=== PATIENT | male | born 1960 | race Caucasian/White ===

== ENCOUNTER → 2022-05-12 | Outpatient (CLI) | payer MEDICAID ==
[2022-05-12 08:42] LABS: Appearance,Urine Clear (Clear); Bilirubin,Urine Negative (Negative); Blood,Urine Negative (Negative); Color,Urine Yellow; Glucose,Urine (UA) Negative (Negative); Ketones,Urine Negative (Negative); Leukocyte Esterase,Urine Negative (Negative); Nitrite,Urine Negative (Negative); PH, Urine 5.5 (5.0-8.0); Protein,Urine Trace (Negative); Specific Gravity,Urine 1.023 (1.001-1.035); Urobilinogen,Urine <2.0 mg/dL (<2.0)
[2022-05-12 14:45] LABS: HCT 46.3 % (39.6-50.0); HGB 15.3 g/dL (13.0-17.0); Mean Platelet Volume 10.8 fL (9.5-12.2); NRBC Per 100 WBC 0 /100 WBCS (0.0-0.0); Platelet Count 297 X 10*3/uL (140-440); RBC 4.63 X 10*6/uL (4.40-5.60); RDW 13.2 % (11.5-14.5); WBC 7.88 X 10*3/uL (4.50-10.00)
[2022-05-12 15:50] LABS: ALT 28 U/L (10-49); AST 17 U/L (14-35); African American GFR (CKD) 98.5 (60.0-200.0); BUN/Creat Ratio 22.43 Ratio (12.00-20.00); Blood Urea Nitrogen 21.4 mg/dL (9.0-27.0); Calcium 10.4 mg/dL (8.7-10.3); Carbon Dioxide 26.4 mmol/L (20.0-27.5); Chloride 99 mmol/L (96-109); Chol/HDL Ratio 2.89 Ratio; Glucose 160 mg/dL (70-110); LDL Cholesterol,Calculated 104.8 mg/dL (0.0-131.0); Potassium 4.6 mmol/L (3.5-5.5); Sodium 138 mmol/L (135-145); VLDL Calculation 17.52 mg/dL (5.00-40.00)
== END | disposition home or self-care (01) ==
LOC: LABWHC1 07:20
PROVIDERS: ATTEND Family Medicine
DX: I10 Essential (primary) hypertension (principal); E78.5 Hyperlipidemia, unspecified; E11.65 Type 2 diabetes mellitus with hyperglycemia; N40.0 Benign prostatic hyperplasia without lower urinary tract symptoms
CPT/HCPCS: 36415; 80048; 80061; 81003; 83036; 84153; 84443; 84450; 84460; 85027

== ENCOUNTER → 2022-05-26 | Outpatient (CLI) | payer MEDICAID ==
[2022-05-26 11:18] LABS: ALT 22 U/L (10-49); AST 20 U/L (14-35); BUN/Creat Ratio 28.75 Ratio (12.00-20.00); Calcium 9.8 mg/dL (8.7-10.3); Chloride 103 mmol/L (96-109); Chol/HDL Ratio 3.15 Ratio; Glucose 145 mg/dL (70-110); LDL Cholesterol,Calculated 85.6 mg/dL (0.0-131.0); Non-African American GFR(CKD) 95.7 (60.0-200.0); Potassium 4.6 mmol/L (3.5-5.5); Sodium 138 mmol/L (135-145); VLDL Calculation 13.36 mg/dL (5.00-40.00)
== END | disposition home or self-care (01) ==
LOC: LABWHC1 06:59
PROVIDERS: ATTEND Family Medicine
DX: E11.65 Type 2 diabetes mellitus with hyperglycemia (principal); E78.5 Hyperlipidemia, unspecified; R89.9 Unspecified abnormal finding in specimens from other organs, systems and tissues
CPT/HCPCS: 36415; 80048; 80061; 82607; 82747; 83036; 84450; 84460

== ENCOUNTER 2022-10-01 15:02 | Emergency (ER) | payer MEDICAID ==
[2022-10-01 15:16] VITALS: RESP 18; TEMP 98.5
[2022-10-01] MEDS ORDERED: KETOROLAC 15 MG/ML 1 ML VIAL IM STA (15:29)
[2022-10-01] MEDS ORDERED: LIDOCAINE 1% INJ 10MG/ML (30 ML VIAL-PF) SQ ONE (15:30)
--- NOTE | 2022-10-01 15:37 | ED ---
General Adult HPI - General Chief complaint: Wound/Laceration Stated complaint: Right finger laceration Time Seen by Provider: 10/01/22 15:19 Source: patient, RN notes reviewed Mode of arrival: ambulatory Limitations: no limitations - History of Present Illness Initial comments: 62-year-old male presents in the emergency department for finger laceration. Patient was doing woodworking when his left second digit went into the saw blade around 1445. He states he is able to move and feel his finger. He did not take anything at home for pain. Patient states that he has had his tetanus shot within the last 5 years, approximately 2 years ago. - Related Data Home Medications Medication Instructions Recorded Confirmed Atorvastatin [Lipitor] 10 mg PO HS 08/23/22 08/23/22 Losartan Potassium [Cozaar] 50 mg PO QAM 08/23/22 08/25/22 Multivitamins, Thera [Multivitamin 1 tab PO DAILY 08/23/22 08/23/22 (formulary)] metFORMIN HCL [Glucophage] 1,000 mg PO BID 08/23/22 08/23/22 Previous Rx's Medication Instructions Recorded Cephalexin [Keflex] 500 mg PO Q6HR #40 cap 10/01/22 Allergies Allergy/AdvReac Type Severity Reaction Status Date / Time No Known Allergies Allergy Verified 10/01/22 15:16 Review of Systems ROS Statement: Those systems with pertinent positive or pertinent negative responses have been documented in the HPI. ROS Other: All systems not noted in ROS Statement are negative. Past Medical History Past Medical History: Diabetes Mellitus, Hyperlipidemia, Hypertension History of Any Multi-Drug Resistant Organisms: None Reported Additional Past Surgical History / Comment(s): Colonoscopy, brain surgery due to an accident about 35 yrs ago. Past Anesthesia/Blood Transfusion Reactions: No Reported Reaction Past Psychological History: No Psychological Hx Reported Smoking Status: Former smoker Past Alcohol Use History: Occasional Past Drug Use History: Marijuana - Past Family History Mother Family Medical History: No Reported History General Exam Limitations: no limitations General appearance: alert, in no apparent distress Eye exam: Present: normal appearance Extremities exam: Present: full ROM, tenderness (laceration to 2nd digit ), normal capillary refill, other (laceration to right 2nd digit ). Absent: pedal edema, joint swelling, calf tenderness Neurological exam: Present: alert, oriented X3 Skin exam: Present: warm, dry, normal color, other (patient has 2.5 cm laceration to distal right 2nd digit with avulsion ). Absent: rash Course Vital Signs 10/01/22 15:14 Temperature 98.5 F Pulse Rate 85 Respiratory 18 Rate Blood Pressure 157/84 O2 Sat by Pulse 98 Oximetry Procedures - Laceration Laceration #1 Consent Obtained: verbal consent Indication: laceration Site: hand (right 2nd digit) Description: flap, avulsion Depth: simple, single layer Anesthetic Used: lidocaine 1% Anesthesia Technique: nerve block Pre-repair: wound explored, irrigated extensively Type of Sutures: nylon Size of Sutures: 4-0 Number of Sutures: 8 Technique: simple, interrupted Patient Tolerated Procedure: well, no complications Medical Decision Making - Medical Decision Making Was pt. sent in by a medical professional or institution ([facility], WIRELESS NETWORK ENGINEER, urgent care, hospital, or residential...) When possible be specific @ -No Did you speak to anyone other than the patient for history (EMS, parent, family, police, friend...)? What history was obtained from this source @ -No Did you review nursing and triage notes (agree or disagree)? Why? @ -I reviewed and agree with nursing and triage notes Were old charts reviewed (outside hosp., previous admission, EMS record, old EKG, old radiological studies, urgent care reports/EKG's, residential records)? Report findings @ -No old charts were reviewed Differential Diagnosis (chest pain, altered mental status, abdominal pain women, abdominal pain men, vaginal bleeding, weakness, fever, dyspnea, syncope, headache, dizziness, GI bleed, back pain, seizure, CVA, palpatations, mental health, musculoskeletal)? @ -Fracture, laceration, avulsion, this list is not all-inclusive EKG interpreted by me (3pts min.). @ -None X-rays interpreted by me (1pt min.). @ -X-ray right second digit shows a large soft tissue laceration with partial amputation fractured tuft distal phalanx. Punctate bony fragments and soft tissue. CT interpreted by me (1pt min.). @ -None done U/S interpreted by me (1pt. min.). @ -None done What testing was considered but not performed or refused? (CT, X-rays, U/S, labs)? Why? @ -None What meds were considered but not given or refused? Why? @ -None Did you discuss the management of the patient with other professionals (professionals i.e. , PA, WIRELESS NETWORK ENGINEER, lab, RT, psych nurse, bilingual social worker, fisher swordfish, teacher, traffic officer, patient case coordinator)? Give summary @ -No Was smoking cessation discussed for >3mins.? @ -No Was critical care preformed (if so, how long)? @ -No Were there social determinants of health that impacted care today? How? (Homelessness, low income, unemployed, alcoholism, drug addiction, transportation, low edu. Level, literacy, decrease access to med. care, fci, rehab)? @ -No Was there de-escalation of care discussed even if they declined (Discuss DNR or withdrawal of care, Hospice)? DNR status @ -No What co-morbidities impacted this encounter? (DM, HTN, Smoking, COPD, CAD, Cancer, CVA, ARF, Chemo, Hep., AIDS, mental health diagnosis, sleep apnea, morbid obesity)? @ -None Was patient admitted / discharged? Hospital course, mention meds given and route, prescriptions, significant lab abnormalities, going to OR and other pertinent info. @ -Discharged. Patient presented to emergency department with laceration to right second digit distal after working with a table saw. X-ray of right second digit was obtained which shows partial amputation fracture tuft distal phalanx. Antibiotics were administered within 1 hour. 8 simple interrupted sutures were placed. Prescription sent for Keflex at home. Tylenol #3 starter pack given. Patient discharged in stable condition. Undiagnosed new problem with uncertain prognosis? @ [N] Drug Therapy requiring intensive monitoring for toxicity (Heparin, Nitro, Insulin, Cardizem)? @ [N] Were any procedures done? @ -Yes 8 simple interrupted sutures were placed in the right distal second digit] Diagnosis/symptom? @ Laceration to right distal second digit Acute, or Chronic, or Acute on Chronic? @ -Acute] Uncomplicated (without systemic symptoms) or Complicated (systemic symptoms)? @ -Uncomplicated] Side effects of treatment? @ [N] Exacerbation, Progression, or Severe Exacerbation? @ [N] Poses a threat to life or bodily function? How? (Chest pain, [place], [place], pneumonia, PE, COPD, DKA, ARF, appy, cholecystitis, CVA, Diverticulitis, Homicidal, Suicidal, threat to staff... and all critical care pts) @ [N] Diagnosis/symptom? @ -Open Fracture of right distal phalanx of second digit Acute, or Chronic, or Acute on Chronic? @ -acute Uncomplicated (without systemic symptoms) or Complicated (systemic symptoms)? @ -Uncomplicated Side effects of treatment? @ -none Exacerbation, Progression, or Severe Exacerbation @ -no Poses a threat to life or bodily function? @ -no Disposition Clinical Impression: Fracture of distal phalanx of finger, open, Laceration Disposition: HOME SELF-CARE Condition: Stable Instructions (If sedation given, give patient instructions): Care For Your Stitches (ED) Additional Instructions: Please return to the Emergency Department if symptoms worsen or any other concerns. Prescriptions: Cephalexin [Keflex] 500 mg PO Q6HR #40 cap Is patient prescribed a controlled substance at d/c from ED?: No Referrals: Brannon Almanza DO [Primary Care Provider] - 1-2 days eLx Beck MD [STAFF PHYSICIAN] - 1-2 days Time of Disposition: 16:58
[2022-10-01] MEDS ORDERED: ceFAZolin 1,000 MG VIAL (IM USE) IM STA (15:47)
--- NOTE | 2022-10-01 15:55 | XR ---
EXAMINATION TYPE: XR finger RT DATE OF EXAM: 10/01/2022 COMPARISON: NONE HISTORY: Pain TECHNIQUE: Three views are submitted. FINDINGS: Large soft tissue injury or laceration involving the second digit with a partial amputation of the tu ft of the distal phalanx. Remaining osseous structures intact. Punctate bony fragments in the soft ti ssues. Correlate clinically to exclude tiny foreign body. IMPRESSION: 1. Large soft tissue laceration with partial amputation fracture tuft distal phalanx. Punctate bony f ragments in the soft tissues. Correlate clinically to exclude tiny foreign body.
[2022-10-01] MEDS ORDERED: ACET/COD 300 MG/30 MG STARTER PACK 6 TAB BTL PO STA (16:58)
[2022-10-01 17:11] VITALS: BP 145/81; PULSE 86
== END 2022-10-01 17:11 | disposition home or self-care (01) ==
LOC: EC 15:02
DX: S62.630A Displaced fracture of distal phalanx of right index finger, initial encounter for closed fracture (principal); E11.9 Type 2 diabetes mellitus without complications; E78.5 Hyperlipidemia, unspecified; I10 Essential (primary) hypertension; Z87.891 Personal history of nicotine dependence; F12.90 Cannabis use, unspecified, uncomplicated; Z79.84 Long term (current) use of oral hypoglycemic drugs; Z79.899 Other long term (current) drug therapy; W31.2XXA Contact with powered woodworking and forming machines, initial encounter
CPT/HCPCS: 73140; 99283; 96372 ×2; 12001; J0690; J2001; J1885

== ENCOUNTER → 2022-11-24 | Outpatient (CLI) | payer MEDICAID ==
[2022-11-24 11:10] LABS: Basophils # (A) 0.04 X 10*3/uL (0.00-0.10); Basophils % (A) 0.6 %; Eosinophils # (A) 0.13 X 10*3/uL (0.04-0.35); HCT 44.4 % (39.6-50.0); HGB 14.4 g/dL (13.0-17.0); Immature Grans, Automated 0.5 %; Lymphocytes # (A) 1.18 X 10*3/uL (0.90-5.00); Lymphocytes % (A) 18.1 %; MCH 32.1 pg (27.0-32.0); MCHC 32.4 g/dL (32.0-37.0); MCV 99.1 fL (80.0-97.0); Mean Platelet Volume 10.7 fL (9.5-12.2); Monocytes # (A) 0.62 X 10*3/uL (0.20-1.00); Monocytes % (A) 9.5 %; NRBC Per 100 WBC 0 /100 WBCS (0.0-0.0); Neutrophils # (A) 4.53 X 10*3/uL (1.80-7.70); Neutrophils % (A) 69.3 %; Platelet Count 288 X 10*3/uL (140-440); RBC 4.48 X 10*6/uL (4.40-5.60); WBC 6.53 X 10*3/uL (4.50-10.00)
[2022-11-24 11:35] LABS: ALT 23 U/L (10-49); AST 27 U/L (14-35); African American GFR (CKD) 102.1 (60.0-200.0); BUN/Creat Ratio 26.03 Ratio (12.00-20.00); Blood Urea Nitrogen 24.1 mg/dL (9.0-27.0); Calcium 10.5 mg/dL (8.7-10.3); Carbon Dioxide 26.8 mmol/L (20.0-27.5); Chloride 102 mmol/L (96-109); Chol/HDL Ratio 2.42 Ratio; Glucose 125 mg/dL (70-110); LDL Cholesterol,Calculated 74.5 mg/dL (0.0-131.0); Non-African American GFR(CKD) 88.1 (60.0-200.0); Sodium 140 mmol/L (135-145); VLDL Calculation 10.74 mg/dL (5.00-40.00)
== END | disposition home or self-care (01) ==
LOC: LABWHC1 06:57
PROVIDERS: ATTEND Family Medicine
DX: E11.65 Type 2 diabetes mellitus with hyperglycemia (principal); E78.5 Hyperlipidemia, unspecified
CPT/HCPCS: 36415; 80048; 80061; 83036; 84450; 84460; 85025

== ENCOUNTER → 2022-12-29 | Outpatient (CLI) | payer MEDICAID | END | disposition home or self-care (01) | LOC: LABWHC1 06:55 | PROVIDERS: ATTEND Family Medicine | DX: E83.52 Hypercalcemia (principal) | CPT/HCPCS: 36415; 82310 ==

== ENCOUNTER → 2023-06-01 | Outpatient (CLI) | payer MEDICAID | END | disposition home or self-care (01) | LOC: LABWHC1 07:14 | PROVIDERS: ATTEND Family Medicine | DX: Z53.9 Procedure and treatment not carried out, unspecified reason (principal) ==

== ENCOUNTER → 2023-06-01 | Outpatient (CLI) | payer MEDICAID ==
[2023-06-01 11:35] LABS: Basophils # (A) 0.03 X 10*3/uL (0.00-0.10); Basophils % (A) 0.4 %; Eosinophils # (A) 0.13 X 10*3/uL (0.04-0.35); Eosinophils % (A) 1.6 %; HCT 41.9 % (39.6-50.0); Lymphocytes # (A) 1.45 X 10*3/uL (0.90-5.00); Lymphocytes % (A) 18.3 %; MCH 33.2 pg (27.0-32.0); MCHC 33.4 g/dL (32.0-37.0); MCV 99.3 FL (80.0-97.0); Mean Platelet Volume 10.9 FL (9.5-12.2); Monocytes # (A) 0.73 X 10*3/uL (0.20-1.00); Monocytes % (A) 9.2 %; NRBC Per 100 WBC 0 X 10*3/uL (0.00-0.01); Neutrophils # (A) 5.56 X 10*3/uL (1.80-7.70); Neutrophils % (A) 70.1 %; Platelet Count 264 X 10*3/uL (140-440); RBC 4.22 X 10*6/uL (4.40-5.60); RDW 13.3 % (11.5-14.5); WBC 7.93 X 10*3/uL (4.50-10.00)
[2023-06-01 11:58] LABS: Chol/HDL Ratio 2.13 Ratio; LDL Cholesterol,Calculated 60.4 mg/dL (0.0-131.0); VLDL Calculation 12.72 mg/dL (5.00-40.00)
[2023-06-01 11:59] LABS: ALT 20 U/L (10-49); AST 21 U/L (14-35); Albumin 4.9 g/dL (3.8-4.9); Albumin/Globulin Ratio 2.04 Ratio (1.60-3.17); Alkaline Phosphatase 63 U/L (41-126); Calcium 10.9 mg/dL (8.7-10.3); Carbon Dioxide 27.1 mmol/L (21.6-31.8); Chloride 100 mmol/L (96-109); Globulin 2.4 g/dL (1.6-3.3); Glucose 130 mg/dL (70-110); Potassium 5.4 mmol/L (3.5-5.5); Sodium 139 mmol/L (135-145); Total Bilirubin 0.6 mg/dL (0.3-1.2); Total Protein 7.3 g/dL (6.2-8.2)
== END | disposition home or self-care (01) ==
LOC: LABWHC1 07:07
PROVIDERS: ATTEND Family Medicine
DX: I10 Essential (primary) hypertension (principal); E55.9 Vitamin D deficiency, unspecified
CPT/HCPCS: 36415; 80053; 80061; 82306; 83036; 84443; 85025

== ENCOUNTER → 2023-06-08 | Outpatient (CLI) | payer MEDICAID ==
[2023-06-08 09:59] LABS: Ionized Calcium 5.4 mg/dL (4.5-5.3)
[2023-06-08 10:23] LABS: Appearance,Urine Clear (Clear); Bilirubin,Urine Negative (Negative); Blood,Urine Negative (Negative); Color,Urine Colorless; Glucose,Urine (UA) Negative (Negative); Ketones,Urine Negative (Negative); Leukocyte Esterase,Urine Negative (Negative); Nitrite,Urine Negative (Negative); Protein,Urine Negative (Negative); Specific Gravity,Urine 1.017 (1.001-1.035); Urobilinogen,Urine <2.0 mg/dL (<2.0)
[2023-06-08 18:50] LABS: Urine Creatinine 70.6 mg/dL (39.0-259.0)
[2023-06-08 19:10] LABS: Calcium 10.5 mg/dL (8.7-10.3); Prostate Specific Antigen 0.66 ng/mL (0.000-4.500)
== END | disposition home or self-care (01) ==
LOC: LABWHC1 08:32
PROVIDERS: ATTEND Family Medicine
DX: E11.9 Type 2 diabetes mellitus without complications (principal); E83.52 Hypercalcemia; N40.0 Benign prostatic hyperplasia without lower urinary tract symptoms
CPT/HCPCS: 36415; 81003; 82043; 82310; 82330; 82570; 83970; 84153

== ENCOUNTER → 2023-09-07 | Outpatient (CLI) | payer MEDICAID | END | disposition home or self-care (01) | LOC: LABWHC1 07:00 | PROVIDERS: ATTEND Family Medicine | DX: E11.9 Type 2 diabetes mellitus without complications (principal) | CPT/HCPCS: 36415; 83036 ==

== ENCOUNTER 2023-10-09 16:24 | Observation (INO) | payer MEDICAID ==
--- NOTE | 2023-10-09 16:55 | ED ---
Arrhythmia/Palpitations HPI - General Source: patient, RN notes reviewed Mode of arrival: ambulatory Limitations: no limitations <Alden Mead - Last Filed: 10/09/23 16:54> - History of Present Illness MD Complaint: irregular heart beat -: hour(s) Context: occurred during rest Associated Symptoms: chest pain <Vadim Lyons - Last Filed: 10/09/23 19:47> - General Stated Complaint: Irregular heartbeat Time Seen by Provider: 10/09/23 16:54 - History of Present Illness Initial Comments: Quick note: 63-year-old male presenting to the ER with a chief complaint of irregular heartbeat. Patient sent by solution designer Dr. Morales. Denies any chest pain or shortness of breath. (Alden Mead) This patient is a 63-year-old man who arrives here after he saw the solution designer and was sent for new onset atrial fibrillation. The patient had gone to see his physician this morning because he was having left-sided rib pains. The patient states that during the weekend he had fallen from the ladder he was using to get to the attic onto a chair. When the pain did not resolve from the weekend he went to have evaluation today. At the primary physician's office it was felt he was having irregular heartbeat and he was referred to cardiology. The solution designer found that he appeared to be in new onset atrial fibrillation. The patient denies other symptoms. (Vadim Lyons) - Related Data Home Medications Medication Instructions Recorded Confirmed Atorvastatin [Lipitor] 10 mg PO HS 08/23/22 08/23/22 Losartan Potassium [Cozaar] 50 mg PO QAM 08/23/22 08/25/22 Multivitamins, Thera [Multivitamin 1 tab PO DAILY 08/23/22 08/23/22 (formulary)] metFORMIN HCL [Glucophage] 1,000 mg PO BID 08/23/22 08/23/22 Previous Rx's Medication Instructions Recorded Cephalexin [Keflex] 500 mg PO Q6HR #40 cap 10/01/22 Allergies Allergy/AdvReac Type Severity Reaction Status Date / Time No Known Allergies Allergy Verified 10/09/23 16:55 Review of Systems ROS Other: All systems not noted in ROS Statement are negative. <Alden Mead - Last Filed: 10/09/23 16:54> ROS Other: All systems not noted in ROS Statement are negative. Constitutional: Denies: fever, chills, weakness Respiratory: Denies: cough, dyspnea, wheezes, hemoptysis Cardiovascular: Reports: as per HPI, chest pain. Denies: palpitations, orthopnea, edema, syncope Gastrointestinal: Denies: abdominal pain, nausea, vomiting Genitourinary: Denies: dysuria, hematuria Musculoskeletal: Denies: back pain Skin: Denies: rash Neurological: Denies: headache, weakness, numbness <Vadim Lyons - Last Filed: 10/09/23 19:47> ROS Statement: Those systems with pertinent positive or pertinent negative responses have been documented in the HPI. Past Medical History Past Medical History: Diabetes Mellitus, Hyperlipidemia, Hypertension History of Any Multi-Drug Resistant Organisms: None Reported Additional Past Surgical History / Comment(s): Colonoscopy, brain surgery due to an accident about 35 yrs ago. Past Anesthesia/Blood Transfusion Reactions: No Reported Reaction Past Psychological History: No Psychological Hx Reported Smoking Status: Former smoker Past Alcohol Use History: Occasional Past Drug Use History: Marijuana - Past Family History Mother Family Medical History: No Reported History <Alden Mead - Last Filed: 10/09/23 16:54> General Exam <Alden Mead - Last Filed: 10/09/23 16:54> General appearance: alert, in no apparent distress Head exam: Present: atraumatic, normocephalic Eye exam: Present: normal appearance. Absent: scleral icterus, conjunctival injection Neck exam: Present: normal inspection, full ROM. Absent: tenderness Respiratory exam: Present: normal lung sounds bilaterally, chest wall tenderness. Absent: respiratory distress, wheezes, rales, rhonchi, stridor, accessory muscle use Cardiovascular Exam: Present: irregular rhythm, normal heart sounds. Absent: systolic murmur, diastolic murmur, rubs, gallop GI/Abdominal exam: Present: soft. Absent: distended, tenderness, guarding, rebound, rigid, mass Extremities exam: Present: normal inspection, normal capillary refill. Absent: pedal edema, calf tenderness Back exam: Present: normal inspection. Absent: CVA tenderness (R), CVA tenderness (L) Neurological exam: Present: alert Skin exam: Present: warm, dry, intact, normal color. Absent: rash <Vadim Lyons - Last Filed: 10/09/23 19:47> - General Exam Comments Initial Comments: Visual Physical Exam Vital signs reviewed General: Well-appearing, nontoxic, no acute distress. Head: Normocephalic, atraumatic Eyes: PERRLA, EOMI ENT: Airway patent Chest: Nonlabored breathing Skin: No visual rash, normal skin tone Neuro: Alert and oriented 3 Musculoskeletal: No gross abnormalities (Alden Mead) Course Vital Signs 10/09/23 10/09/23 16:52 19:38 Temperature 97.9 F Pulse Rate 89 69 Respiratory 16 18 Rate Blood Pressure 176/78 152/101 O2 Sat by Pulse 98 98 Oximetry EKG Findings - EKG Results: EKG: interpreted by ERMD, normal axis, normal ST/T - Dysrhythmias: Supraventricular dysrhythmia: atrial fibrillation (Rate 86 bpm) - TX, Pacemaker, Normal: Myocardial infarction: septal TX (old age or indeterminate) <Vadim Lyons - Last Filed: 10/09/23 19:47> Medical Decision Making <Alden Mead - Last Filed: 10/09/23 16:54> - Lab Data Result diagrams: 10/09/23 17:13 10/09/23 17:13 <Vadim Lyons - Last Filed: 10/09/23 19:47> - Medical Decision Making I performed the quick note portion of this chart. Electronically signed by Alden Mead PA-C (Alden Mead) I had discussed the case with Dr. Morales who stated that he would like patient to be admitted to have further evaluation. I phoned Dr. Grimes who accepted admi ssion. The patient had chest x-ray which I interpreted as negative for pneumothorax, congestive heart failure, acute infiltrate. No rib fracture noted (Vadim Lyons) - Lab Data Lab Results 10/09/23 10/09/23 10/09/23 Range/Units 17:13 17:13 17:13 WBC 7.1 (3.8-10.6) k/uL RBC 4.08 L (4.30-5.90) m/uL Hgb 13.5 (13.0-17.5) gm/dL Hct 41.5 (39.0-53.0) % MCV 101.6 H (80.0-100.0) fL MCH 33.0 (25.0-35.0) pg MCHC 32.4 (31.0-37.0) g/dL RDW 13.2 (11.5-15.5) % Plt Count 241 (150-450) k/uL MPV 8.6 Neutrophils % 66 % Lymphocytes % 24 % Monocytes % 5 % Eosinophils % 1 % Basophils % 1 % Neutrophils # 4.7 (1.3-7.7) k/uL Lymphocytes # 1.7 (1.0-4.8) k/uL Monocytes # 0.4 (0-1.0) k/uL Eosinophils # 0.1 (0-0.7) k/uL Basophils # 0.0 (0-0.2) k/uL Macrocytosis Slight PT 10.1 (10.0-12.5) sec INR 0.9 (<1.2) APTT 23.6 (22.0-30.0) sec Sodium 142 (137-145) mmol/L Potassium 4.4 (3.5-5.1) mmol/L Chloride 111 H (98-107) mmol/L Carbon Dioxide 26 (22-30) mmol/L Anion Gap 5 mmol/L BUN 19 (9-20) mg/dL Creatinine 0.74 (0.66-1.25) mg/dL Est GFR (CKD-EPI)AfAm >90 (>60 ml/min/1.73 sqM) Est GFR (CKD-EPI)NonAf >90 (>60 ml/min/1.73 sqM) Glucose 185 H (74-99) mg/dL Calcium 9.0 (8.4-10.2) mg/dL Magnesium 1.5 L (1.6-2.3) mg/dL Total Bilirubin 0.5 (0.2-1.3) mg/dL AST 24 (17-59) U/L ALT 24 (4-49) U/L Alkaline Phosphatase 56 (38-126) U/L Troponin I (0.000-0.034) ng/mL Total Protein 6.4 (6.3-8.2) g/dL Albumin 4.0 (3.5-5.0) g/dL 10/09/23 Range/Units 17:13 WBC (3.8-10.6) k/uL RBC (4.30-5.90) m/uL Hgb (13.0-17.5) gm/dL Hct (39.0-53.0) % MCV (80.0-100.0) fL MCH (25.0-35.0) pg MCHC (31.0-37.0) g/dL RDW (11.5-15.5) % Plt Count (150-450) k/uL MPV Neutrophils % % Lymphocytes % % Monocytes % % Eosinophils % % Basophils % % Neutrophils # (1.3-7.7) k/uL Lymphocytes # (1.0-4.8) k/uL Monocytes # (0-1.0) k/uL Eosinophils # (0-0.7) k/uL Basophils # (0-0.2) k/uL Macrocytosis PT (10.0-12.5) sec INR (<1.2) APTT (22.0-30.0) sec Sodium (137-145) mmol/L Potassium (3.5-5.1) mmol/L Chloride (98-107) mmol/L Carbon Dioxide (22-30) mmol/L Anion Gap mmol/L BUN (9-20) mg/dL Creatinine (0.66-1.25) mg/dL Est GFR (CKD-EPI)AfAm (>60 ml/min/1.73 sqM) Est GFR (CKD-EPI)NonAf (>60 ml/min/1.73 sqM) Glucose (74-99) mg/dL Calcium (8.4-10.2) mg/dL Magnesium (1.6-2.3) mg/dL Total Bilirubin (0.2-1.3) mg/dL AST (17-59) U/L ALT (4-49) U/L Alkaline Phosphatase (38-126) U/L Troponin I <0.012 (0.000-0.034) ng/mL Total Protein (6.3-8.2) g/dL Albumin (3.5-5.0) g/dL
[2023-10-09 17:25] LABS: Basophils % (A) 1 %; Eosinophils # (A) 0.1 k/uL (0-0.7); Eosinophils % (A) 1 %; HCT 41.5 % (39.0-53.0); HGB 13.5 gm/dL (13.0-17.5); Lymphocytes # (A) 1.7 k/uL (1.0-4.8); Lymphocytes % (A) 24 %; MCHC 32.4 g/dL (31.0-37.0); MCV 101.6 fL (80.0-100.0); Macrocytosis Slight; Mean Platelet Volume 8.6; Monocytes # (A) 0.4 k/uL (0-1.0); Monocytes % (A) 5 %; Neutrophils # (A) 4.7 k/uL (1.3-7.7); Neutrophils % (A) 66 %; Platelet Count 241 k/uL (150-450); RBC 4.08 m/uL (4.30-5.90); RDW 13.2 % (11.5-15.5); WBC 7.1 k/uL (3.8-10.6)
[2023-10-09 17:40] LABS: ALT 24 U/L (4-49); AST 24 U/L (17-59); African American GFR (CKD) >90 (>60 ml/min/1.73 sqM); Alkaline Phosphatase 56 U/L (38-126); Anion Gap 5 mmol/L; Blood Urea Nitrogen 19 mg/dL (9-20); Carbon Dioxide 26 mmol/L (22-30); Chloride 111 mmol/L (98-107); Glucose 185 mg/dL (74-99); Magnesium 1.5 mg/dL (1.6-2.3); Non-African American GFR(CKD) >90 (>60 ml/min/1.73 sqM); Potassium 4.4 mmol/L (3.5-5.1); Sodium 142 mmol/L (137-145); Total Bilirubin 0.5 mg/dL (0.2-1.3); Total Protein 6.4 g/dL (6.3-8.2)
--- NOTE | 2023-10-09 17:50 | XR ---
EXAMINATION TYPE: XR chest 2V DATE OF EXAM: 10/09/2023 COMPARISON: 10/09/2023 INDICATION: Dysrhythmia TECHNIQUE: Frontal and lateral views of the chest are obtained. FINDINGS: The heart size is normal. The pulmonary vasculature is normal. The lungs are clear. No pneumothorax is evident. Ribs as visualized appear intact on this study. IMPRESSION: 1. No acute pulmonary process.
[2023-10-09 17:51] LABS: INR 0.9 (<1.2); Partial Thromboplastin Time 23.6 sec (22.0-30.0); Prothrombin Time 10.1 sec (10.0-12.5)
[2023-10-09] MEDS ORDERED: NITROGLYCERIN SL TABS 0.4 MG TAB SUBLINGUAL PRN (18:40)
[2023-10-09] MEDS: SODIUM CHLORIDE 0.9% 1,000 ML IV SCH (19:36)
[2023-10-09] MEDS: DILTIAZEM ORAL 30 MG TAB PO STA (19:37)
[2023-10-09] MEDS: ENOXAPARIN 80 MG/0.8 ML SYRINGE SQ STA (19:40)
[2023-10-09] MEDS: ACETAMINOPHEN TAB 325 MG TAB PO STA (20:10)
[2023-10-09] MEDS: ATORVASTATIN 10 MG TAB PO SCH (20:32)
[2023-10-09] MEDS: metFORMIN 500 MG TAB PO SCH (20:32)
[2023-10-09] MEDS: MAGNESIUM SULFATE-D5W PMX 1 GM in DEXTROSE/WATER 1 100ML.BAG IVPB ONE (20:32)
[2023-10-10] MEDS: DILTIAZEM ORAL 30 MG TAB PO SCH (01:25)
[2023-10-10] MEDS: MAGNESIUM OXIDE 400 MG TAB PO SCH (08:30)
[2023-10-10] MEDS: MULTIVITAMINS, THERA 1 EACH TAB PO SCH (08:30)
[2023-10-10] MEDS: LOSARTAN 50 MG TAB PO SCH (08:31)
[2023-10-10] MEDS: ENOXAPARIN 80 MG/0.8 ML SYRINGE SQ SCH (08:32)
--- NOTE | 2023-10-10 08:58 | P.CRDCN ---
History of Present Illness History of present illness: HISTORY OF PRESENT ILLNESS: This is a 63-year-old male with a past medical history significant for hypertension and diabetes. Patient follows in the office with Dr. Morales. We have been asked to see the patient in consultation for new onset atrial fibrillation. Patient examined at the bedside in the emergency room. Patient states that he recently fell off of a ladder coming down from his attic and was having a lot of left-sided rib pain. He went to see his PCP and had an EKG completed which revealed atrial fibrillation and patient was referred to a stewarding supervisor. Patient saw Dr. Morales in the office yesterday for an initial evaluation. Patient was sent to the hospital for further evaluation. Patient currently denies chest pain or pressure. He denies shortness of breath. Denies dizziness or lightheadedness. He denies any episodes of syncope. He does report having left-sided lateral wall chest pain along his rib secondary to his recent fall. Patient remains in atrial fibrillation at the time of examination with controlled ventricular rate. The patient denies any history of atrial fibrillation in the past. DIAGNOSTICS: - EKG reveals atrial fibrillation with controlled ventricular rate - Chest xray negative for acute process - Laboratory data: WBC 7.1. Hemoglobin 13.5. Platelet count 241. Sodium 142. Potassium 4.4. BUN 19. Creatinine 0.74. Troponin negative x 3 - Current home cardiac medications include Lipitor 10 mg at night and losartan 50 mg daily. REVIEW OF SYSTEMS: At the time of my exam: CONSTITUTIONAL: Denies fever or chills. HEENT: Denies blurred vision, vision changes, or eye pain. Denies hemoptysis CARDIOVASCULAR: Denies chest pain. Denies orthopnea. Denies PND. Denies palpitations RESPIRATORY: Denies shortness of breath. GASTROINTESTINAL: Denies abdominal pain. Denies nausea or vomiting. HEMATOLOGIC: Denies bleeding disorders. GENITOURINARY: Denies any blood in urine. SKIN: Denies pruitis. Denies rash. PHYSICAL EXAM: VITAL SIGNS: Reviewed. GENERAL: Well-developed in no acute distress. HEENT: Head is normocephalic. Pupils are equal, round. Sclerae anicteric. Mucous membranes of the mouth are moist. Neck supple. No JVD or thyromegaly LUNGS: Respirations even and unlabored. Lungs essentially clear to auscultation bilaterally. HEART: Irregular rate and rhythm. S1 and S2 heard. ABDOMEN: Soft. Nondistended. Nontender. EXTREMITIES: Normal range of motion. No clubbing or cyanosis. Peripheral pulses intact. No lower extremity edema NEUROLOGIC: Awake and alert. Oriented x 3. ASSESSMENT: New onset atrial fibrillation with controlled ventricular rate Status post mechanical fall Hypertension Diabetes Hypomagnesemia PLAN: Obtain 2D echo to assess cardiac structure and function Resume home cardiac medications Add metoprolol 25 mg twice a day Begin Eliquis 5 mg twice a day Continue telemetry monitoring Check TSH Patient may be discharged home this afternoon pending echo results Nurse practitioner note has been reviewed by physician. Signing provider agrees with the documented findings, assessment, and plan of care documented by WATER RESOURCES BUSINESS SEGMENT LEADER as a scribe. Past Medical History Past Medical History: Diabetes Mellitus, Hyperlipidemia, Hypertension History of Any Multi-Drug Resistant Organisms: None Reported Additional Past Surgical History / Comment(s): Colonoscopy, brain surgery due to an accident about 35 yrs ago. Past Anesthesia/Blood Transfusion Reactions: No Reported Reaction Past Psychological History: No Psychological Hx Reported Smoking Status: Former smoker Past Alcohol Use History: Occasional Past Drug Use History: Marijuana - Past Family History Mother Family Medical History: No Reported History Medications and Allergies Home Medications Medication Instructions Recorded Confirmed Type Atorvastatin [Lipitor] 10 mg PO HS 08/23/22 10/09/23 History Losartan Potassium [Cozaar] 50 mg PO DAILY 08/23/22 10/09/23 History metFORMIN HCL [Glucophage] 1,000 mg PO DAILY 08/23/22 10/09/23 History Dulaglutide [Trulicity] 3 mg SQ TH 10/09/23 10/09/23 History metFORMIN HCL [Glucophage] 500 mg PO HS 10/09/23 10/09/23 History Allergies Allergy/AdvReac Type Severity Reaction Status Date / Time No Known Allergies Allergy Verified 10/09/23 19:49 Physical Exam Vitals: Vital Signs Temp Pulse Resp BP Pulse Ox 10/10/23 07:52 80 18 146/95 98 10/10/23 07:03 71 17 147/95 97 10/10/23 05:00 97.2 F L 59 L 16 124/81 99 10/10/23 03:00 60 12 134/104 95 10/10/23 02:00 66 12 143/93 96 10/10/23 01:30 65 15 160/97 96 10/10/23 00:44 64 18 140/101 97 10/09/23 22:07 79 18 130/98 98 10/09/23 20:58 70 18 181/100 100 10/09/23 19:38 69 18 152/101 98 10/09/23 16:52 97.9 F 89 16 176/78 98 Intake and Output 10/09/23 10/10/23 10/10/23 22:59 06:59 14:59 Other: # Voids 1 Weight 75.75 kg Results 10/09/23 17:13 10/09/23 17:13 Cardiac Enzymes 10/09/23 10/09/23 10/09/23 Range/Units 17:13 17:13 20:59 AST 24 (17-59) U/L Troponin I <0.012 <0.012 (0.000-0.034) ng/mL 10/10/23 Range/Units 00:38 AST (17-59) U/L Troponin I <0.012 (0.000-0.034) ng/mL Coagulation 10/09/23 Range/Units 17:13 PT 10.1 (10.0-12.5) sec APTT 23.6 (22.0-30.0) sec CBC 10/09/23 Range/Units 17:13 WBC 7.1 (3.8-10.6) k/uL RBC 4.08 L (4.30-5.90) m/uL Hgb 13.5 (13.0-17.5) gm/dL Hct 41.5 (39.0-53.0) % Plt Count 241 (150-450) k/uL Comprehensive Metabolic Panel 10/09/23 Range/Units 17:13 Sodium 142 (137-145) mmol/L Potassium 4.4 (3.5-5.1) mmol/L Chloride 111 H (98-107) mmol/L Carbon Dioxide 26 (22-30) mmol/L BUN 19 (9-20) mg/dL Creatinine 0.74 (0.66-1.25) mg/dL Glucose 185 H (74-99) mg/dL Calcium 9.0 (8.4-10.2) mg/dL AST 24 (17-59) U/L ALT 24 (4-49) U/L Alkaline Phosphatase 56 (38-126) U/L Total Protein 6.4 (6.3-8.2) g/dL Albumin 4.0 (3.5-5.0) g/dL Current Medications Generic Name Dose Route Start Last Admin Trade Name Freq PRN Reason Stop Dose Admin Apixaban 5 mg 10/10/23 09:00 Apixaban 5 Mg Tab PO BID [facility] Protocol Atorvastatin Calcium 10 mg 10/09/23 21:00 10/09/23 20:32 Atorvastatin 10 Mg Tab PO Not Given HS [facility] Sodium Chloride 1,000 mls @ 20 mls/hr 10/09/23 18:45 10/09/23 19:36 Saline 0.9% IV 20 mls/hr .Q24H [facility] Administration Losartan Potassium 50 mg 10/10/23 09:00 10/10/23 08:31 Losartan 50 Mg Tab PO 50 mg QAM [facility] Administration Magnesium Oxide 400 mg 10/10/23 09:00 10/10/23 08:30 Magnesium Oxide 400 Mg Tab PO 400 mg DAILY [facility] Administration Metformin HCl 1,000 mg 10/09/23 21:00 10/10/23 08:29 Metformin 500 Mg Tab PO 1,000 mg BID-W/MEALS [facility] Administration Metoprolol Tartrate 25 mg 10/10/23 09:00 Metoprolol Tartrate 25 Mg Tab PO BID [facility] Multivitamins 1 each 10/10/23 09:00 10/10/23 08:30 Multivitamins, Thera 1 Each Tab PO 1 each DAILY [facility] Administration Nitroglycerin 0.4 mg 10/09/23 18:40 Nitroglycerin Sl Tabs 0.4 Mg Tab SUBLINGUAL Q5M PRN Chest Pain Intake and Output 10/09/23 10/10/23 10/10/23 22:59 06:59 14:59 Other: # Voids 1 Weight 75.75 kg 10/09/23 17:13 10/09/23 17:13
[2023-10-10] MEDS ORDERED: ASPIRIN 325 MG TAB PO SCH (09:00)
[2023-10-10] MEDS: APIXABAN 5 MG TAB PO SCH (09:31)
[2023-10-10] MEDS: METOPROLOL TARTRATE 25 MG TAB PO SCH (09:31)
[2023-10-10] MEDS ORDERED: DEXTROSE 50% SYRINGE 50 ML IVP PRN ×2 (09:43)
[2023-10-10 12:32] LABS: Glucose,Whole Blood 77 mg/dL (70-110)
[2023-10-10] MEDS: INSULIN ASPART (NovoLOG) 100 UNIT/ML VIAL SQ SCH (12:44)
--- NOTE | 2023-10-10 13:09 | P.HPIM ---
History of Present Illness H&P Date: 10/10/23 History of present illness; patient is a 63-year-old gentleman with past medical history significant for hypertension, diabetes mellitus who presented to the ER for irregular heartbeat. Patient was apparently seen in Dr. Martinez's office and was found to be in A-fib and was sent to the hospital for further evaluation. Patient had a fall a couple of days ago while coming down the ladder from his attic. Following that patient was complaining of left-sided chest pain and was evaluated by his PCP where he was found to have irregular heartbeat and was sent to gasoline engine inspector office. Denies any palpitations. There is no complaint orthopnea or PND. No complaint of shortness of breath. Denies any nausea vomiting or abdominal pain. Because of this irregular heartbeat, patient was eval in the ER. Initial lab work done in the ER showed WBC 7.1, hemoglobin 13.5, platelet count 241, sodium 142, potassium 4.4, BUN 19, creatinine 0.74, glucose 185, magnesium 1.5 EKG done in the ER showed irregular rate and rhythm, no ST segment elevation or depression seen, no T-wave inversions seen. Chest x-ray done in the ER no acute pulmonary process Patient admitted to internal medicine service REVIEW OF SYSTEMS: CONSTITUTIONAL: No fever, no malaise, no fatigue. HEENT: No recent visual problems or hearing problems. Denied any sore throat. CARDIOVASCULAR: As mentioned HPI PULMONARY: As mentioned HPI GASTROINTESTINAL: No diarrhea, no nausea, no vomiting, no abdominal pain. NEUROLOGICAL: No headaches, no weakness, no numbness. HEMATOLOGICAL: Denies any bleeding or petechiae. GENITOURINARY: Denies any burning micturition, frequency, or urgency. MUSCULOSKELETAL/RHEUMATOLOGICAL: Denies any joint pain, swelling, or any muscle pain. ENDOCRINE: Denies any polyuria or polydipsia. The rest of the 14-point review of systems is negative. PHYSICAL EXAMINATION: GENERAL: The patient is alert and oriented x3, not in any acute distress. Well developed, well nourished. HEENT: Pupils are round and equally reacting to light. EOMI. No scleral icterus. No conjunctival pallor. Normocephalic, atraumatic. No pharyngeal erythema. No thyromegaly. CARDIOVASCULAR: S1 and S2 present. No murmurs, rubs, or gallops. PULMONARY: Chest is clear to auscultation, no wheezing or crackles. ABDOMEN: Soft, nontender, nondistended, normoactive bowel sounds. No palpable organomegaly. MUSCULOSKELETAL: No joint swelling or deformity. EXTREMITIES: No cyanosis, clubbing, or pedal edema. NEUROLOGICAL: Gross neurological examination did not reveal any focal deficits. SKIN: No rashes. Assessment and plan A-fib with RVR Hypomagnesemia Status post mechanical fall Hypertension Diabetes melitis Monitor vital signs Monitor CBC Monitor CMP Continue telemetry monitoring Trend troponins. Ordered 2D echo Start Eliquis Start Lopressor 25 twice a day Resume losartan Resume Lipitor Cardiology consulted Labs and medication were reviewed.. Continue same treatment. Continue with symptomatic treatment. Resume home medication. Monitor labs and vitals. DVT and GI prophylaxis. Further recommendations as per clinical course of the patient Dictation was produced using [employer] dictation software. please excuse any grammatical, word or spelling errors. Past Medical History Past Medical History: Diabetes Mellitus, Hyperlipidemia, Hypertension History of Any Multi-Drug Resistant Organisms: None Reported Additional Past Surgical History / Comment(s): Colonoscopy, brain surgery due to an accident about 35 yrs ago. Past Anesthesia/Blood Transfusion Reactions: No Reported Reaction Past Psychological History: No Psychological Hx Reported Smoking Status: Former smoker Past Alcohol Use History: Occasional Past Drug Use History: Marijuana - Past Family History Mother Family Medical History: No Reported History Medications and Allergies Home Medications Medication Instructions Recorded Confirmed Type Atorvastatin [Lipitor] 10 mg PO HS 08/23/22 10/09/23 History Losartan Potassium [Cozaar] 50 mg PO DAILY 08/23/22 10/09/23 History metFORMIN HCL [Glucophage] 1,000 mg PO DAILY 08/23/22 10/09/23 History Dulaglutide [Trulicity] 3 mg SQ TH 10/09/23 10/09/23 History metFORMIN HCL [Glucophage] 500 mg PO HS 10/09/23 10/09/23 History Allergies Allergy/AdvReac Type Severity Reaction Status Date / Time No Known Allergies Allergy Verified 10/09/23 19:49 Physical Exam Vitals: Vital Signs Temp Pulse Resp BP Pulse Ox 10/10/23 09:24 95 10/10/23 07:52 80 18 146/95 98 10/10/23 07:03 71 17 147/95 97 04/17/24 05:00 97.2 F L 59 L 16 124/81 99 10/10/23 03:00 60 12 134/104 95 10/10/23 02:00 66 12 143/93 96 10/10/23 01:30 65 15 160/97 96 10/10/23 00:44 64 18 140/101 97 10/09/23 22:07 79 18 130/98 98 10/09/23 20:58 70 18 181/100 100 10/09/23 19:38 69 18 152/101 98 10/09/23 16:52 97.9 F 89 16 176/78 98 Intake and Output 10/09/23 10/10/23 10/10/23 22:59 06:59 14:59 Other: # Voids 1 Weight 75.75 kg Results CBC & Chem 7: 10/09/23 17:13 10/09/23 17:13 Labs: Abnormal Lab Results - Last 24 Hours (Table) 10/09/23 10/09/23 Range/Units 17:13 17:13 RBC 4.08 L (4.30-5.90) m/uL MCV 101.6 H (80.0-100.0) fL Chloride 111 H (98-107) mmol/L Glucose 185 H (74-99) mg/dL Magnesium 1.5 L (1.6-2.3) mg/dL
[2023-10-10 16:18] LABS: Chol/HDL Ratio 2.41 Ratio; LDL Cholesterol,Calculated 58.5 mg/dL (0.0-131.0)
--- NOTE | 2023-10-10 17:45 | CA ---
Transthoracic Echo Report Name: Brannon Valdez Age: 63 Gender: M : 1960 Exam Date: 10/10/2023 14:42 Exam Location: [facility] Ht (in): 67 Wt (lb): 167 Ordering Physician: Sarah Reynaga Attending/Referring Phys: [id number], Juhi Software Developer Intern Kajal Anton RCS Procedure CPT: Indications: LV function Cardiac Hx: Technical Quality: Fair Contrast 1: Total Dose (mL): Contrast 2: Total Dose (mL): MEASUREMENTS (Male / Female) Normal Values 2D ECHO LV Diastolic Diameter PLAX 4.2 cm 4.2 - 5.9 / 3.9 - 5.3 cm LV Systolic Diameter PLAX 3.1 cm IVS Diastolic Thickness 1.0 cm 0.6 - 1.0 / 0.6 - 0.9 cm LVPW Diastolic Thickness 1.1 cm 0.6 - 1.0 / 0.6 - 0.9 cm LV Relative Wall Thickness 0.5 LVOT Diameter 2.4 cm Aortic Root Diameter 3.0 cm LV Diastolic Volume MOD BP 92.0 cm??? 67 - 155 / 56 - 104 cm??? LV Systolic Volume MOD BP 46.4 cm??? 22 - 58 / 19 - 49 cm??? LV Ejection Fraction MOD BP 49.5 % >= 55 % LV Cardiac Index MOD BP 1603.1 cm???/min???m??? LV Diastolic Volume MOD 4C 98.4 cm??? LV Systolic Volume MOD 4C 50.4 cm??? LV Ejection Fraction MOD 4C 48.8 % LV Cardiac Index MOD 4C 1690.4 cm???/min???m??? LV Diastolic Length 4C 8.6 cm LV Systolic Length 4C 7.4 cm LV Diastolic Volume MOD 2C 79.7 cm??? LV Systolic Volume MOD 2C 41.3 cm??? LV Ejection Fraction MOD 2C 48.2 % LV Cardiac Index MOD 2C 1349.9 cm???/min???m??? LV Diastolic Length 2C 7.9 cm LV Systolic Length 2C 7.0 cm LA Volume 77.3 cm??? 18 - 58 / 22 - 52 cm??? LA Volume Index 40.5 cm???/m??? 16 - 28 cm???/m??? Ascending Aorta Diameter 3.1 cm DOPPLER AV Peak Velocity 130.0 cm/s AV Peak Gradient 6.8 mmHg AV Mean Velocity 94.5 cm/s AV Mean Gradient 3.9 mmHg AV Velocity Time Integral 26.5 cm LVOT Peak Velocity 120.3 cm/s LVOT Peak Gradient 5.8 mmHg LVOT Velocity Time Integral 24.2 cm LVOT Stroke Volume 105.4 cm??? LVOT Stroke Volume Index 56.3 ml/m??? LVOT Cardiac Index 3707.5 cm???/min???m??? AV Area Cont Eq vti 4.0 cm??? AV Area Cont Eq pk 4.0 cm??? PV Peak Velocity 68.4 cm/s PV Peak Gradient 1.9 mmHg FINDINGS Left Ventricle Left ventricular ejection fraction is estimated at 50-55 %. Mildly decreased left ventricular ejection fraction. Left ventricular cavity size normal. Left ventricular wall thickness normal. No obvious regional wall motion abnormalities. Right Ventricle Normal right ventricular size and function. Unable to assess right ventricular systolic function. Right Atrium Normal right atrial size. Left Atrium Moderately increased left atrial volume. Mildly increased left atrial area. Mitral Valve Structurally normal mitral valve. No evidence for mitral valve prolapse. No mitral stenosis. Trace mitral regurgitation. Aortic Valve Aortic valve not well visualized. No aortic stenosis. No aortic regurgitation. Tricuspid Valve Structurally normal tricuspid valve. No tricuspid stenosis. Trace tricuspid regurgitation. Pulmonic Valve Pulmonic valve not well visualized. No pulmonic stenosis. No pulmonic regurgitation. Pericardium No pericardial effusion. Aorta Aortic root and proximal ascending aorta not well visualized. CONCLUSIONS Normal LV function Previewed by: Dr. Олег Morales MD (Electronically Signed) Final Date: 10 October 2023 17:45
[2023-10-10 18:25] LABS: Glucose,Whole Blood 76 mg/dL (70-110)
[2023-10-10 20:39] LABS: Glucose,Whole Blood 191 mg/dL (70-110)
[2023-10-11 06:10] LABS: Glucose,Whole Blood 92 mg/dL (70-110)
[2023-10-11 08:28] VITALS: BP 186/96; PULSE 78; RESP 18; TEMP 98.1
--- NOTE | 2023-10-11 09:55 | P.DS ---
Providers Date of admission: 10/09/23 18:42 Expected date of discharge: 10/11/23 Attending physician: Emily Grimes Consults: 10/09/23 18:40 Consult Physician Urgent Consulting Provider: Олег Morales Consult Reason/Comments: New onset atrial fibrillation Do you want consulting provider notified?: Yes Primary care physician: [facility] Hospital Course: Discharge diagnoses; A-fib with RVR Hypomagnesemia Status post mechanical fall Hypertension Diabetes melitis Hospital course; patient is a 63-year-old gentleman with past medical history significant for hypertension, diabetes mellitus who presented to the ER for irregular heartbeat. Patient was apparently seen in Dr. Martinez's office and was found to be in A-fib and was sent to the hospital for further evaluation. Patient had a fall a couple of days ago while coming down the ladder from his attic. Following that patient was complaining of left-sided chest pain and was evaluated by his PCP where he was found to have irregular heartbeat and was sent to service support representative office. Denies any palpitations. There is no complaint orthopnea or PND. No complaint of shortness of breath. Denies any nausea vomiting or abdominal pain. Because of this irregular heartbeat, patient was eval in the ER. Initial lab work done in the ER showed WBC 7.1, hemoglobin 13.5, platelet count 241, sodium 142, potassium 4.4, BUN 19, creatinine 0.74, glucose 185, magnesium 1.5 EKG done in the ER showed irregular rate and rhythm, no ST segment elevation or depression seen, no T-wave inversions seen. Chest x-ray done in the ER no acute pulmonary process Patient admitted to internal medicine service 10/10. Patient seen and examined. Cardiology recommend starting patient on Lopressor 25 twice daily and Eliquis. Dose of losartan was increased to 100 mg daily. Cardiology cleared the patient for discharge PHYSICAL EXAMINATION: GENERAL: The patient is alert and oriented x3, not in any acute distress. Well developed, well nourished. HEENT: Pupils are round and equally reacting to light. EOMI. No scleral icterus. No conjunctival pallor. Normocephalic, atraumatic. No pharyngeal erythema. No thyromegaly. CARDIOVASCULAR: S1 and S2 present. No murmurs, rubs, or gallops. PULMONARY: Chest is clear to auscultation, no wheezing or crackles. ABDOMEN: Soft, nontender, nondistended, normoactive bowel sounds. No palpable o rganomegaly. MUSCULOSKELETAL: No joint swelling or deformity. EXTREMITIES: No cyanosis, clubbing, or pedal edema. NEUROLOGICAL: Gross neurological examination did not reveal any focal deficits. SKIN: No rashes. Dictation was produced using [employer] dictation software. please excuse any grammatical, word or spelling errors. Plan - Discharge Summary New Discharge Prescriptions: New Apixaban [Eliquis] 5 mg PO BID #60 tab Losartan [Cozaar] 100 mg PO DAILY #60 tab Metoprolol Tartrate [Lopressor] 25 mg PO BID #60 tab Continue metFORMIN HCL [Glucophage] 1,000 mg PO DAILY metFORMIN HCL [Glucophage] 500 mg PO HS Dulaglutide [Trulicity] 3 mg SQ TH Atorvastatin [Lipitor] 10 mg PO HS Discontinued Losartan Potassium [Cozaar] 50 mg PO DAILY Discharge Medication List Atorvastatin [Lipitor] 10 mg PO HS 08/23/22 [History] metFORMIN HCL [Glucophage] 1,000 mg PO DAILY 08/23/22 [History] Dulaglutide [Trulicity] 3 mg SQ TH 10/09/23 [History] metFORMIN HCL [Glucophage] 500 mg PO HS 10/09/23 [History] Apixaban [Eliquis] 5 mg PO BID #60 tab 10/10/23 [Rx] Metoprolol Tartrate [Lopressor] 25 mg PO BID #60 tab 10/10/23 [Rx] Losartan [Cozaar] 100 mg PO DAILY #60 tab 10/11/23 [Rx] Follow up Appointment(s)/Referral(s): Brannon Almanza DO [Primary Care Provider] - 1-2 days Олег Morales MD [STAFF PHYSICIAN] - 1 Week Discharge Disposition: HOME SELF-CARE
--- NOTE | 2023-10-11 13:20 | P.PN ---
Subjective HISTORY OF PRESENT ILLNESS: This is a 63-year-old male with a past medical history significant for hypertension and diabetes. Patient follows in the office with Dr. Morales. We have been asked to see the patient in consultation for new onset atrial fibrillation. Patient examined at the bedside in the emergency room. Patient states that he recently fell off of a ladder coming down from his attic and was having a lot of left-sided rib pain. He went to see his PCP and had an EKG completed which revealed atrial fibrillation and patient was referred to a feller buncher operator. Patient saw Dr. Morales in the office yesterday for an initial evaluation. Patient was sent to the hospital for further evaluation. Patient currently denies chest pain or pressure. He denies shortness of breath. Denies dizziness or lightheadedness. He denies any episodes of syncope. He does report having left-sided lateral wall chest pain along his rib secondary to his recent fall. Patient remains in atrial fibrillation at the time of examination with controlled ventricular rate. The patient denies any history of atrial fibrillation in the past. DIAGNOSTICS: - EKG reveals atrial fibrillation with controlled ventricular rate - Chest xray negative for acute process - Laboratory data: WBC 7.1. Hemoglobin 13.5. Platelet count 241. Sodium 142. Potassium 4.4. BUN 19. Creatinine 0.74. Troponin negative x 3 - Current home cardiac medications include Lipitor 10 mg at night and losartan 50 mg daily. 10/11/2023 Patient examined this morning at bedside. Patient denies chest pain or pressure. He denies shortness of breath. Echocardiogram completed revealing ejection fraction 50 to 55%. He remains in sinus mechanism. Blood pressures have been elevated with a systolic between [id number]. TSH 1.640. PHYSICAL EXAM: VITAL SIGNS: Reviewed. GENERAL: Well-developed in no acute distress. HEENT: Head is normocephalic. Pupils are equal, round. Sclerae anicteric. Mucous membranes of the mouth are moist. Neck supple. No JVD or thyromegaly LUNGS: Respirations even and unlabored. Lungs essentially clear to auscultation bilaterally. HEART: Regular rate and rhythm. S1 and S2 heard. ABDOMEN: Soft. Nondistended. Nontender. EXTREMITIES: Normal range of motion. No clubbing or cyanosis. Peripheral pulses intact. No lower extremity edema NEUROLOGIC: Awake and alert. Oriented x 3. ASSESSMENT: New onset atrial fibrillation with controlled ventricular rate, currently maintaining sinus mechanism Status post mechanical fall Hypertension Diabetes Hypomagnesemia PLAN: Increase losartan to 100mg daily Continue additional cardiac medications Patient is stable for discharge home today from a cardiac standpoint He is to follow-up postdischarge with Dr. Morales Nurse practitioner note has been reviewed by physician. Signing provider agrees with the documented findings, assessment, and plan of care documented by OWNER/PHOTOGRAPHER as a scribe. Objective - Vital Signs Vital signs: Vital Signs Temp 98.1 F 10/11/23 08:00 Pulse 78 10/11/23 08:00 Resp 18 10/11/23 08:00 BP 186/96 10/11/23 08:00 Pulse Ox 98 10/11/23 08:00 FiO2 Intake & Output 10/10/23 10/11/23 10/11/23 18:59 06:59 18:59 Intake Total 120 Output Total 0 Balance 120 Weight 75.75 kg Intake: Oral 120 Output: Gastric Drainage 0 Urine 0 Stool 0 Urine/Stool Mix 0 Emesis 0 Oral Regurgitation 0 Other 0 Other: Voiding Method Toilet Toilet # Voids 0 # Bowel Movements 0 - Labs CBC & Chem 7: 10/09/23 17:13 10/09/23 17:13 Labs: Abnormal Lab Results - Last 24 Hours (Table) 10/10/23 10/10/23 Range/Units 08:39 20:37 POC Glucose (mg/dL) 191 H (70-110) mg/dL HDL Cholesterol 60.90 H (40.00-60.00) mg/dL
== END 2023-10-11 10:17 | disposition home or self-care (01) ==
LOC: EC 16:24 → INTOOBSV 18:42 → 3SCARD 18:42
PROVIDERS: ADMIT Hospitalist; ATTEND Hospitalist
DX: I48.91 Unspecified atrial fibrillation (principal); E11.9 Type 2 diabetes mellitus without complications; I10 Essential (primary) hypertension; E83.42 Hypomagnesemia; E78.5 Hyperlipidemia, unspecified; Z87.891 Personal history of nicotine dependence; Z91.81 History of falling; Z79.84 Long term (current) use of oral hypoglycemic drugs; Z79.899 Other long term (current) drug therapy
CPT/HCPCS: 96361 ×2; 96365; 96372; 99285; 36415; 93005; 93306; 80061; 80053; 84443; 83735; 84484 ×2; 85025; 85610; 85730; 83036; 71046; G0378 ×3; J1650; J3475

== ENCOUNTER → 2023-10-09 | Outpatient (CLI) | payer MEDICAID ==
--- NOTE | 2023-10-09 10:36 | XR ---
EXAMINATION TYPE: XR ribs LT w pa chest xray DATE OF EXAM: 10/09/2023 10:13 AM CLINICAL INDICATION:Male, 63 years old with history of R07.81 Pleurodynia; COMPARISON: None TECHNIQUE: XR ribs LT w pa chest xray; Frontal and oblique views of the ribs with frontal chest radio graph. FINDINGS: The ribs have a normal appearance. No evidence of fracture. Overall, the lungs are clear. The cardiac silhouette is normal in size. The remaining osseous structures are intact. IMPRESSION: No acute osseous pathology.
== END | disposition home or self-care (01) ==
LOC: RADXRMAIN 09:51
PROVIDERS: ATTEND Family Medicine
DX: R07.81 Pleurodynia (principal)

== ENCOUNTER → 2024-01-02 | Outpatient (CLI) | payer MEDICAID ==
[2024-01-02 12:15] LABS: Basophils % (A) 0.4 %; Eosinophils # (A) 0.07 X 10*3/uL (0.04-0.35); Eosinophils % (A) 0.9 %; HCT 47.6 % (39.6-50.0); HGB 15.7 g/dL (13.0-17.0); Lymphocytes # (A) 1.51 X 10*3/uL (0.90-5.00); Lymphocytes % (A) 19.1 %; MCH 33.1 pg (27.0-32.0); MCV 100.2 FL (80.0-97.0); Mean Platelet Volume 10.9 FL (9.5-12.2); Monocytes # (A) 0.53 X 10*3/uL (0.20-1.00); Monocytes % (A) 6.7 %; NRBC Per 100 WBC 0 X 10*3/uL (0.00-0.01); Neutrophils % (A) 72.3 %; Platelet Count 290 X 10*3/uL (140-440); RBC 4.75 X 10*6/uL (4.40-5.60); RDW 13.2 % (11.5-14.5); WBC 7.89 X 10*3/uL (4.50-10.00)
[2024-01-02 12:16] LABS: Basophils # (A) 0.03 X 10*3/uL (0.00-0.10)
[2024-01-02 12:41] LABS: Chol/HDL Ratio 3.45 Ratio; LDL Cholesterol,Calculated 133.1 mg/dL (0.0-131.0); VLDL Calculation 15.98 mg/dL (5.00-40.00)
[2024-01-02 13:06] LABS: ALT 29 U/L (10-49); AST 22 U/L (14-35); BUN/Creat Ratio 22.91 Ratio (12.00-20.00); Blood Urea Nitrogen 25.2 mg/dL (9.0-27.0); Carbon Dioxide 25.4 mmol/L (21.6-31.8); Chloride 100 mmol/L (96-109); Glucose 141 mg/dL (70-110); Potassium 6.5 mmol/L (3.5-5.5); Sodium 138 mmol/L (135-145)
== END | disposition home or self-care (01) ==
LOC: LABWHC1 07:05
PROVIDERS: ATTEND Family Medicine
DX: I10 Essential (primary) hypertension (principal); E83.52 Hypercalcemia; E78.5 Hyperlipidemia, unspecified; E11.9 Type 2 diabetes mellitus without complications
CPT/HCPCS: 36415; 80048; 80061; 82306; 83036; 84450; 84460; 85025

== ENCOUNTER → 2024-01-03 | Outpatient (CLI) | payer MEDICAID ==
[2024-01-03 10:53] LABS: Basophils # (A) 0.03 X 10*3/uL (0.00-0.10); Basophils % (A) 0.4 %; Eosinophils # (A) 0.07 X 10*3/uL (0.04-0.35); HCT 44.8 % (39.6-50.0); HGB 14.6 g/dL (13.0-17.0); Lymphocytes % (A) 13.8 %; MCH 32.5 pg (27.0-32.0); MCHC 32.6 g/dL (32.0-37.0); MCV 99.8 FL (80.0-97.0); Monocytes # (A) 0.61 X 10*3/uL (0.20-1.00); Monocytes % (A) 8.4 %; NRBC Per 100 WBC 0 X 10*3/uL (0.00-0.01); Neutrophils # (A) 5.52 X 10*3/uL (1.80-7.70); Neutrophils % (A) 76.1 %; Platelet Count 273 X 10*3/uL (140-440); RBC 4.49 X 10*6/uL (4.40-5.60); RDW 13.3 % (11.5-14.5); WBC 7.25 X 10*3/uL (4.50-10.00)
[2024-01-03 11:20] LABS: Chol/HDL Ratio 3.22 Ratio
[2024-01-03 11:31] LABS: Calcium 9.4 mg/dL (8.7-10.3); Carbon Dioxide 24.8 mmol/L (21.6-31.8); Chloride 102 mmol/L (96-109); Glucose 188 mg/dL (70-110); Potassium 4.5 mmol/L (3.5-5.5); Sodium 138 mmol/L (135-145)
[2024-01-03 11:32] LABS: ALT 24 U/L (10-49); AST 21 U/L (14-35)
== END | disposition home or self-care (01) ==
LOC: LABWHC1 06:49
PROVIDERS: ATTEND Family Medicine
DX: I10 Essential (primary) hypertension (principal); E11.9 Type 2 diabetes mellitus without complications; E83.52 Hypercalcemia; E87.5 Hyperkalemia
CPT/HCPCS: 36415; 80048; 80061; 82306; 83036; 84450; 84460; 85025

== ENCOUNTER → 2024-01-22 | Outpatient (CLI) | payer MEDICAID ==
[2024-01-22 12:08] LABS: BUN/Creat Ratio 26.62 Ratio (12.00-20.00); Blood Urea Nitrogen 21.3 mg/dL (9.0-27.0); Calcium 9.4 mg/dL (8.7-10.3); Carbon Dioxide 24.4 mmol/L (21.6-31.8); Chloride 104 mmol/L (96-109); Glucose 178 mg/dL (70-110); Potassium 4.9 mmol/L (3.5-5.5); Sodium 140 mmol/L (135-145)
== END | disposition home or self-care (01) ==
LOC: LABWHC1 07:13
PROVIDERS: ATTEND Family Medicine
DX: I10 Essential (primary) hypertension (principal)
CPT/HCPCS: 36415; 80048

== ENCOUNTER → 2024-06-23 | Outpatient (CLI) | payer MEDICAID ==
[2024-06-23 07:51] LABS: Appearance,Urine Clear (Clear); Bilirubin,Urine Negative (Negative); Blood,Urine Moderate (Negative); Color,Urine Light Yellow; Glucose,Urine (UA) Negative (Negative); Ketones,Urine Negative (Negative); Leukocyte Esterase,Urine Negative (Negative); Mucus,Urine Rare /hpf; Nitrite,Urine Negative (Negative); PH, Urine 5.5 (5.0-8.0); Protein,Urine Negative (Negative); RBC,Urine <1 /hpf (0-5); Specific Gravity,Urine 1.022 (1.001-1.035); Urobilinogen,Urine <2.0 mg/dL (<2.0); WBC,Urine <1 /hpf (0-5)
[2024-06-23 10:23] LABS: Basophils # (A) 0.05 X 10*3/uL (0.00-0.10); Basophils % (A) 0.8 %; Eosinophils # (A) 0.14 X 10*3/uL (0.04-0.35); Eosinophils % (A) 2.3 %; HCT 41.9 % (39.6-50.0); HGB 13.9 g/dL (13.0-17.0); Lymphocytes # (A) 1.56 X 10*3/uL (0.90-5.00); Lymphocytes % (A) 25.6 %; MCH 32.2 pg (27.0-32.0); MCHC 33.2 g/dL (32.0-37.0); Mean Platelet Volume 10.1 FL (9.5-12.2); Monocytes # (A) 0.51 X 10*3/uL (0.20-1.00); Monocytes % (A) 8.4 %; NRBC Per 100 WBC 0 X 10*3/uL (0.00-0.01); Neutrophils % (A) 62.2 %; Platelet Count 293 X 10*3/uL (140-440); RBC 4.32 X 10*6/uL (4.40-5.60)
[2024-06-23 10:42] LABS: ALT 22 U/L (10-49); AST 19 U/L (14-35); Albumin 4.4 g/dL (3.8-4.9); Alkaline Phosphatase 57 U/L (41-126); BUN/Creat Ratio 17.25 Ratio (12.00-20.00); Blood Urea Nitrogen 13.8 mg/dL (9.0-27.0); Calcium 9.2 mg/dL (8.7-10.3); Carbon Dioxide 26.5 mmol/L (21.6-31.8); Chloride 103 mmol/L (96-109); Globulin 2.2 g/dL (1.6-3.3); Glucose 116 mg/dL (70-110); LDL Cholesterol,Calculated 74.1 mg/dL (0.0-131.0); Potassium 4.6 mmol/L (3.5-5.5); Sodium 140 mmol/L (135-145); Total Bilirubin 0.5 mg/dL (0.3-1.2); Total Protein 6.6 g/dL (6.2-8.2); VLDL Calculation 15.14 mg/dL (5.00-40.00)
[2024-06-23 13:31] LABS: Prostate Specific Antigen 0.53 ng/mL (0.000-4.500)
== END | disposition home or self-care (01) ==
LOC: LABWHC1 06:49
PROVIDERS: ATTEND Family Medicine
DX: Z00.00 Encounter for general adult medical examination without abnormal findings (principal); Z12.5 Encounter for screening for malignant neoplasm of prostate; I10 Essential (primary) hypertension; E78.2 Mixed hyperlipidemia; E78.5 Hyperlipidemia, unspecified; E11.9 Type 2 diabetes mellitus without complications; E55.9 Vitamin D deficiency, unspecified
CPT/HCPCS: 36415; 80053; 80061; 81001; 82043; 82306; 82570; 83036; 84153; 84443; 85025